=== PATIENT | female | born 1960 | race Caucasian/White ===

== ENCOUNTER → 2017-03-16 | Outpatient (CLI) | payer OTHER | LOC: RAD 04:25 | DX: Z12.31 Encounter for screening mammogram for malignant neoplasm of breast (principal) ==

== ENCOUNTER → 2018-03-23 | Outpatient (CLI) | payer OTHER | LOC: RAD 03:19 | DX: Z12.31 Encounter for screening mammogram for malignant neoplasm of breast (principal) ==

== ENCOUNTER → 2019-04-02 | Outpatient (CLI) | payer OTHER | LOC: RAD 03:41 | DX: Z12.31 Encounter for screening mammogram for malignant neoplasm of breast (principal) ==

== ENCOUNTER → 2020-04-07 | Outpatient (CLI) | payer OTHER | LOC: BC 10:01 | PROVIDERS: ATTEND Family Medicine | DX: Z12.31 Encounter for screening mammogram for malignant neoplasm of breast (principal) ==

== ENCOUNTER → 2021-04-10 | Outpatient (CLI) | payer OTHER | LOC: BC 15:43 | PROVIDERS: ATTEND Family Medicine | DX: Z12.31 Encounter for screening mammogram for malignant neoplasm of breast (principal) ==

== ENCOUNTER → 2021-09-09 | Outpatient (CLI) | payer OTHER | LOC: ULTRA 11:31 | PROVIDERS: ATTEND Family Medicine | DX: N64.4 Mastodynia (principal) ==